=== PATIENT | male | born 1960 | race Caucasian/White ===

== ENCOUNTER 2017-09-16 19:18 | Emergency (ER) | payer OTHER ==
--- OUTSIDE RECORDS SUMMARY | 2017-09-16 19:26 | XMS REPORT ---
:1960 External Reference #:[id number] Author Organization [facility] Address [address] [address] Phone [phone] Care Team Providers Name Role Phone Pelon Willett MD Care Team Information Special Procedure Technologist Unavailable Pelon Willett MD Primary Care Physician Unavailable Payers Type Date Identification Numbers Payment Provider Subscriber Commercial Policy Number: [id number] [employer] Vu Tubbs PayID: [id number] [address] [address] [place] [address] Problems Date Description Provider Status Onset: 09/03/2013 Dyspnea Yaakov Retana M.D. Active Onset: 09/03/2013 Chest pain Yaakov Retana M.D. Active Onset: 09/03/2013 Mixed hyperlipidemia Yaakov Retana M.D. Active Onset: 03/26/2014 Dyspnea on exertion Yaakov Retana M.D. Active Onset: 11/05/2014 Obstructive sleep apnea syndrome Kris Mattson M.D. Active Onset: 09/02/2015 Cough Janna Narvaez MD Active Onset: 09/02/2015 Morbid obesity Janna Narvaez MD Active Onset: 10/06/2015 Gastroesophageal reflux disease Janna Narvaez MD Active Onset: 03/08/2016 Hypersomnia Clair Hamm DNP, RN, Active CLIENT REPRESENTATIVE-BC Onset: 03/08/2016 Insomnia Clair Hamm DNP, RN, Active CLIENT REPRESENTATIVE-BC Family History Date Family Member(s) Problem(s) Comments General Congestive Heart Failure (CHF) mother General Bone Cancer 2 bothers General Breast Cancer sister General Lung Cancer father General Hypertension mother General Diabetes, Non Insulin Dependent sister General [place] sister Father Lung Cancer Father due to Cancer () - Blood Father Smoker Siblings 1 Social History Type Date Description Comments Marital Status Significant Other Lives With Male Partner Occupation Disabled Work Status 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) Cigarette Use Former Cigarette Smoker Smoke 2-3 ppd for 20 years ETOH Use Denies alcohol use Smoking Patient is a former smoker quit smoking in 1993 Recreational Drug Use Denies Drug Use Daily Caffeine Consumes on average 3 cups of regular coffee per day Exercise Type/Frequency Walks 3 times a week Allergies, Adverse Reactions, Alerts Date Description Reaction Status Severity Comments 09/01/2013 Codeine Rash active and hallucinations 09/03/2013 Morphine active bothers stomach Medications Medication Date Status Form Strength Qnty SIG Indications Ordering Provider Prednisone 09/03/ Active Tablets 5mg 90tabs 3 tabs J20.9 Janna 2018 by mouth Brice, for 1 MD week, 2 tabs for 3 weeks, 1 tab for 2 weeks Wrist Splint 05/25/ Active Misc 1units wear at [facility]. 2017 night Edwards, for 1 M.D. month Bupropion HCL 08/31/ Active Tablets 100mg 1 by Unknown 2016 mouth bid Pantoprazole / Active Tablets DR 40mg 90tabs 1 by Unknown Sodium 0000 mouth every day Aspirin / Active Tablets 81mg 1 by Unknown 0000 mouth every day Clopidogrel / Active Tablets 75mg 90tabs 1 by Yaakov Bisulfate 0000 mouth DChitra Retana, every M.D. day Vascepa / Active Capsules 1gm 2 by Unknown 0000 mouth twice a day Fenofibrate / Active Tablets 160mg 1 by Unknown 0000 mouth every day Flovent HFA / Active Aerosol 220mcg/Act 2 puffs Unknown 0000 as needed. Amoxicillin / Active Tablets 875mg take one Unknown 0000 tablet by mouth twice a day Zolpidem Tartrate 10/26/ Hx Tablets ER 6.25mg 15tabs Take One G47.33 Janna ER 2015 - Tablet Brice, 10/12/ By Mouth 2016 Every Day as Needed For Sleep Maximum Daily Dose=1 Tablet Symbicort 09/01/ Hx Aerosol 80-4.5mcg/ 20.7gm 1 puff R06.02 Janna 2015 - Act twice a Brice, 08/16/ day as 2018 needed Lunesta 09/01/ Hx Tablets 2mg 30tabs 1 tablet G47.33 Janna 2016 - by mouth Brice, 10/12/ for 2016 sleep as needed Atorvastatin 08/31/ Hx Tablets 40mg 1 by Unknown Calcium 2015 - mouth 10/12/ every 2016 day Gabapentin 08/31/ Hx Capsules 300mg 2 tabs Unknown 2016 - daily 2016 Valsartan 08/31/ Hx 160mg one tab Unknown 2015 - PO daily 2016 Tamiflu 09/24/ Hx Capsules 75mg 1 tablet Niziol, 2013 - po bid Pelon 10/14/ x5 days 2013 Lipitor / Hx Tablets 40mg 90tabs one tab Unknown 0000 - by mouth 12/29/ 2014 night at bedtime Tricor / Hx Tablets 145mg 30tabs 1 by Unknown 0000 - mouth 03/24/ 2013 day Meloxicam / Hx Tablets 15mg 30tabs 1 by Unknown 0000 - mouth 08/16/ 2017 day Tramadol HCL / Hx Tablets 50mg 50tabs four Unknown 0000 - times a day as 2015 needed Fish Oil / Hx Capsules 1000mg 2 by Unknown 0000 - mouth bid 2013 Iron Supplement / Hx Tablets 325(65Fe) 90tabs by mouth Unknown 0000 - mg every 2013 Hydrocodone-Aceta / Hx Tablets 5-325mg 40tabs 1 by Unknown minophen 0000 - mouth 2013 4-6 hours prn. Famciclovir / Hx Tablets 500mg 1 tab po Niziol, 0000 - tid x 7 Pelon, 03/24/ days 2013 Trazodone HCL 00/ Hx Tablets 50mg 30tabs 1 tablet Unknown 0000 - at 12/29/ bedtime 2014 as needed Phendimetrazine / Hx Tablets 35mg 240tab 2 by Unknown Tartrate 0000 - s mouth 01/28/ before 2015 meals Androgel /00/ Hx qd Unknown 0000 - 2016 Cyclobenzaprine / Hx Tablets 10mg one by Unknown HCL 0000 - mouth three 2016 times a day as needed spasm Oxycodone HCL 00/ Hx prn Unknown 0000 - 2015 Trilipix 00/ Hx Capsules 135mg take one Unknown 0000 - DR capsule 12/06/ qd 2016 Testosterone / Hx Gel 50mg/5GM 2 packet Unknown 0000 - (1%) daily 2017 Axiron / Hx Solution 30mg/Act 2 pumps Unknown 0000 - under 05/03/ each arm 2016 daily Oxycodone-Acetami / Hx Tablets 10-325mg take 1 Unknown nophen 0000 - tablet 08/16/ by mouth 2018 every 6 hours as needed for pain Selenium / Hx 125 mg Unknown 0000 - daily 2017 Medications Administered in Office Medication Date Status Form Strength Qnty SIG Indications Ordering Provider Inj, 02/18/ Administered Injection Yaakov D. Regadenoson, 0.1 2014 Brand, MG M.D. Aminophylline 02/18/ Administered Injection Yaakov D. 2015 Brand, M.D. Technetium TC 02/18/ Administered Injection Yaakov D. 99M Tetrofosmin, 2014 Brand, Per Unit Dose Up M.D. To 40 Millicuries Inj, 08/05/ Administered Injection Yaakov D. Regadenoson, 0.1 2014 Brand, MG M.D. Technetium TC 08/05/ Administered Injection Yaakov D. 99M Tetrofosmin, 2014 Brand, Per Unit Dose Up M.D. To 40 Millicuries Inj, 09/18/ Administered Injection Yaakov D. Regadenoson, 0.1 2013 Brand, MG M.D. Technetium TC 09/18/ Administered Injection Yaakov D. 99M Tetrofosmin, 2013 Brand, Per Unit Dose Up M.D. To 40 Millicuries Vital Signs Date Vital Result Comment 09/03/2017 Height 69 inches 5'9" Weight 266.00 lb Heart Rate 92 /min BP Systolic Sitting 124 mmHg BP Diastolic Sitting 80 mmHg Respiratory Rate 14 /min O2 % BldC Oximetry 99 % BMI (Body Mass Index) 39.3 kg/m2 Neck Circumference in inches 19 08/17/2017 Height 69 inches 5'9" Weight 260.00 lb No shoes Heart Rate 84 /min BP Systolic Sitting 142 mmHg Rue lrg cuff BP Diastolic Sitting 92 mmHg Rue lrg cuff BP Systolic Standing 136 mmHg Rue lrg cuff BP Diastolic Standing 88 mmHg Rue lrg cuff Respiratory Rate 17 /min BMI (Body Mass Index) 38.4 kg/m2 Ejection Fraction 60-65% 01/07/2016-echo 05/04/2017 Height 69 inches 5'9" Weight 245.00 lb Heart Rate 85 /min BP Systolic Sitting 132 mmHg BP Diastolic Sitting 88 mmHg Respiratory Rate 17 /min BMI (Body Mass Index) 36.2 kg/m2 11/03/2016 Height 69 inches 5'9" Weight 248.00 lb Heart Rate 84 /min BP Systolic Sitting 132 mmHg BP Diastolic Sitting 86 mmHg Respiratory Rate 17 /min BMI (Body Mass Index) 36.6 kg/m2 08/09/2016 Height 69 inches 5'9" Weight 262.50 lb no shoes Heart Rate 86 /min BP Systolic Sitting 136 mmHg Lue lrg cuff BP Diastolic Sitting 88 mmHg Lue lrg cuff BP Systolic Standing 132 mmHg Lue lrg cuff BP Diastolic Standing 84 mmHg Lue lrg cuff Respiratory Rate 18 /min BMI (Body Mass Index) 38.8 kg/m2 Ejection Fraction 60-65% 01/06/2016-echo 03/08/2016 Height 69 inches 5'9" Weight 255.00 lb Heart Rate 90 /min BP Systolic 130 mmHg BP Diastolic 84 mmHg Respiratory Rate 14 /min O2 % BldC Oximetry 98 % BMI (Body Mass Index) 37.7 kg/m2 01/11/2016 Height 69 inches 5'9" Weight 244.00 lb Heart Rate 84 /min BP Systolic Sitting 116 mmHg right arm, large cuff BP Diastolic Sitting 88 mmHg right arm, large cuff BP Systolic Standing 110 mmHg right arm, large cuff BP Diastolic Standing 86 mmHg right arm, large cuff Respiratory Rate 20 /min BMI (Body Mass Index) 36.0 kg/m2 Ejection Fraction 60-65% 01/07/16 01/07/2016 Height 69 inches 5'9" Weight 245.00 lb w/ shoes Heart Rate 82 /min BP Systolic Sitting 124 mmHg Rue, lg cuff BP Diastolic Sitting 86 mmHg Rue, lg cuff BP Systolic Standing 132 mmHg Rue BP Diastolic Standing 90 mmHg Rue Respiratory Rate 16 /min BMI (Body Mass Index) 36.2 kg/m2 Ejection Fraction 50-55% as of 01/29/15 echo 10/27/2015 Height 69 inches 5'9" Weight 258.00 lb Heart Rate 88 /min BP Systolic 124 mmHg BP Diastolic 78 mmHg Respiratory Rate 14 /min O2 % BldC Oximetry 97 % BMI (Body Mass Index) 38.1 kg/m2 10/06/2015 Height 69 inches 5'9" Weight 258.00 lb Heart Rate 96 /min BP Systolic 128 mmHg BP Diastolic 84 mmHg Respiratory Rate 14 /min O2 % BldC Oximetry 96 % BMI (Body Mass Index) 38.1 kg/m2 09/02/2015 Height 69 inches 5'9" Weight 258.00 lb Heart Rate 97 /min BP Systolic Sitting 136 mmHg BP Diastolic Sitting 74 mmHg Respiratory Rate 18 /min O2 % BldC Oximetry 97 % BMI (Body Mass Index) 38.1 kg/m2 02/25/2015 Height 69.5 inches 5'9.50" Weight 253.00 lb Heart Rate 96 /min BP Systolic Sitting 132 mmHg Ra large cuff BP Diastolic Sitting 94 mmHg Ra large cuff BP Systolic Standing 126 mmHg Ra BP Diastolic Standing 90 mmHg Ra Respiratory Rate 16 /min BMI (Body Mass Index) 36.8 kg/m2 Ejection Fraction 50-55% 01/29/15 01/29/2015 Height 69.5 inches 5'9.50" Weight 252.00 lb with shoes Heart Rate 88 /min BP Systolic Sitting 136 mmHg LA, Lg cuff BP Diastolic Sitting 88 mmHg LA, Lg cuff BP Systolic Standing 136 mmHg LA BP Diastolic Standing 92 mmHg LA Respiratory Rate 18 /min BMI (Body Mass Index) 36.7 kg/m2 Ejection Fraction 50-55% 01/29/2015 12/30/2014 Height 69.5 inches 5'9.50" Weight 242.00 lb Heart Rate 88 /min BP Systolic Sitting 118 mmHg BP Diastolic Sitting 82 mmHg Respiratory Rate 14 /min BMI (Body Mass Index) 35.2 kg/m2 12/17/2014 Weight 251.00 lb Heart Rate 91 /min BP Systolic 124 mmHg BP Diastolic 88 mmHg Respiratory Rate 14 /min O2 % BldC Oximetry 98 % Neck Circumference in inches 19 11/05/2014 Height 69 inches 5'9" Weight 240.00 lb Heart Rate 78 /min BP Systolic Sitting 128 mmHg right arm, large cuff BP Diastolic Sitting 92 mmHg right arm, large cuff Respiratory Rate 12 /min O2 % BldC Oximetry 96 % Room air BMI (Body Mass Index) 35.4 kg/m2 09/11/2014 Height 69 inches 5'9" Weight 245.00 lb with shoes Heart Rate 80 /min regular BP Systolic Sitting 112 mmHg left arm reg cuff BP Diastolic Sitting 78 mmHg left arm reg cuff BP Systolic Standing 118 mmHg left arm reg cuff BP Diastolic Standing 76 mmHg left arm reg cuff Respiratory Rate 18 /min BMI (Body Mass Index) 36.2 kg/m2 Ejection Fraction 50-55% 08/10/14 09/03/2014 Height 69 inches 5'9" Weight 245.00 lb Heart Rate 83 /min BP Systolic Sitting 124 mmHg BP Diastolic Sitting 80 mmHg O2 % BldC Oximetry 97 % BMI (Body Mass Index) 36.2 kg/m2 Neck Circumference in inches 18 07/30/2014 Height 69 inches 5'9" Weight 248.00 lb w/ shoes Heart Rate 80 /min reg BP Systolic Sitting 116 mmHg LA, lg cuff BP Diastolic Sitting 76 mmHg LA, lg cuff BP Systolic Standing 118 mmHg LA BP Diastolic Standing 80 mmHg LA Respiratory Rate 16 /min BMI (Body Mass Index) 36.6 kg/m2 07/09/2014 Height 69 inches 5'9" Weight 240.00 lb Heart Rate 95 /min BP Systolic Sitting 131 mmHg BP Diastolic Sitting 76 mmHg Respiratory Rate 20 /min O2 % BldC Oximetry 97 % BMI (Body Mass Index) 35.4 kg/m2 Neck Circumference in inches 18 03/26/2014 Height 69 inches 5'9" Weight 241.00 lb with shoes Heart Rate 88 /min regular BP Systolic 110 mmHg LA large cuff BP Diastolic 80 mmHg LA large cuff BP Systolic Standing 106 mmHg LA large cuff BP Diastolic Standing 80 mmHg LA large cuff Respiratory Rate 18 /min BMI (Body Mass Index) 35.6 kg/m2 10/14/2013 Height 69 inches 5'9" Weight 230.00 lb Heart Rate 80 /min BP Systolic Sitting 126 mmHg BP Diastolic Sitting 88 mmHg Respiratory Rate 12 /min BMI (Body Mass Index) 34.0 kg/m2 09/26/2013 Height 61.50 inches 5'1.50" Weight 230.00 lb without shoes Heart Rate 66 /min BP Systolic Sitting 124 mmHg Ra lg cuff BP Diastolic Sitting 80 mmHg Ra lg cuff BP Systolic Standing 114 mmHg Ra lg cuff BP Diastolic Standing 70 mmHg Ra lg cuff Respiratory Rate 16 /min BMI (Body Mass Index) 42.7 kg/m2 09/03/2013 Height 69 inches 5'9" Weight 232.00 lb Heart Rate 64 /min BP Systolic 116 mmHg Ra large cuff BP Diastolic 90 mmHg Ra large cuff BP Systolic Sitting 120 mmHg LA large cuff BP Diastolic Sitting 82 mmHg LA large cuff BP Systolic Standing 108 mmHg LA BP Diastolic Standing 88 mmHg LA Respiratory Rate 18 /min BMI (Body Mass Index) 34.3 kg/m2 Results Test Date Test Result H/L Range Note CBC Auto Diff 01/29/2015 White Blood Count 7.2 10^3/uL 4.8-10.8 Red Blood Count 4.65 10^6/uL 4.0-5.4 Hemoglobin 14.4 g/dL 14.0-18.0 Hematocrit 42 % 42-52 Mean Corpuscular Volume 91 fL 80-94 Mean Corpuscular Hemoglobin 31 pg 27-31 Mean Corpuscular HGB Conc 34 g/dL 31-36 Red Cell Distribution Width 14 % 10.5-15 Platelet Count 158 10^3/uL 150-450 Mean Platelet Volume 8 um3 7.4-10.4 Abs Neutrophils 4.0 10^3/uL 1.5-7.7 Abs Lymphocytes 2.0 10^3/uL 1.0-4.8 Abs Monocytes 0.7 10^3/uL 0-0.8 Abs Eosinophils 0.3 10^3/uL 0-0.6 Abs Basophils 0.1 10^3/uL 0-0.2 Abs Nucleated RBC 0.01 10^3/uL Granulocyte % 55.7 % 38-83 Lymphocyte % 28.4 % 25-47 Monocyte % 10.1 % High 1-9 Eosinophil % 4.6 % 0-6 Basophil % 1.2 % 0-2 Nucleated Red Blood Cells % 0.1 Procedures Date CPT Code Description Status 08/27/2017 93704 ECHO Transthoracic, Real-Time 2D With Doppler And Color Completed Flow 08/27/2017 39116 ECHO Transthoracic, Real-Time 2D With Doppler And Color Completed Flow 08/17/2017 92654 EKG Tracing & Interpretation Completed 05/25/2017 18083 Nerve Conduction 07-08 Studies Completed 08/09/2016 61135 EKG Tracing & Interpretation Completed 01/10/2016 93886 Treadmill Interp/Report Only Completed 01/10/2016 76356 Stress Test Supervsn W/Out I/R Completed 01/07/2016 46377 ECHO Transthoracic, Real-Time 2D With Doppler And Color Completed Flow 01/07/2016 64036 EKG Tracing & Interpretation Completed 02/18/2015 18786 Stress Test Completed 02/18/2015 48831 Myocardial Perfusion Imaging Tomographic (Spect) Completed Multiple Studies 02/08/2015 Colonoscopy Completed 01/29/2015 97313 ECHO Transthoracic, Real-Time 2D With Doppler And Color Completed Flow 01/29/2015 11123 EKG Tracing & Interpretation Completed 08/10/2014 44985 ECHO Transthoracic, Real-Time 2D With Doppler And Color Completed Flow 08/05/2014 95187 Stress Test Completed 08/05/2014 43518 Myocardial Perfusion Imaging Tomographic (Spect) Completed Multiple Studies 07/30/2014 24344 EKG Tracing & Interpretation Completed 07/25/2014 35786 Polysomnography Sleep Staging 4+ Parameters W/Cpap Completed 06/16/2014 42687 Polysomnography Sleep Staging 4+ Parameters W/Cpap Completed 05/19/2014 55001 EEG Recording Awake & Drowsy Completed 03/26/2014 76869 EKG Tracing & Interpretation Completed 12/02/2013 86805 Polysomnography Sleep Staging 4+ Parameters Completed 09/18/2013 69812 Stress Test Completed 09/18/2013 77825 Myocardial Perfusion Imaging Tomographic (Spect) Completed Multiple Studies 09/10/2013 21961 EKG, Interpretation Only Completed 09/03/2013 85964 EKG Tracing & Interpretation Completed 08/28/2013 65837 ECHO Transthorasic Realtime 2D W Doppler & Color Completed Flow [facility] 08/26/2013 38279 EEG Recording Awake & Asleep Completed Encounters Type Date Location Provider CPT E/M Dx Office Visit 08/17/2017 [facility] Yaakov Retana, 49756 I71.2 8:30a Yassine Mac I35.0 R07.9 Office Visit 05/04/2017 3:15p [facility] Vamshi Cox, 57313 R20.0 Estefania I69.398 Office Visit 11/03/2016 3:45p [facility] Vamshi GardinerChitra Edwards, 52688 G47.33 M.D. I63.8 R41.840 Office Visit 08/09/2016 8:30a [facility] Rianna Retana, 03051 R07.9 [facility] M.D. I35.0 I71.2 Office Visit 03/08/2016 1:15p [facility] Clair Hamm, 00085 G47.33 [facility] MAYNOR, RN, CLIENT REPRESENTATIVE- G47.00 Office Visit 01/11/2016 1:00p [facility] Rianna Retana, 94313 R07.9 Wire T[facility] At [facility] M.D. I35.0 R06.02 Z01.810 Office Visit 01/07/2016 9:00a [facility] Rianna Retana, 56658 I35.0 [facility] M.D. R07.9 I71.2 Office Visit 10/27/2015 8:15a [facility] [place] [address] R05 [facility] G47.33 K21.9 E66.01 Office Visit 10/06/2015 11:30a [facility] [place] [address] R05 [facility] G47.33 K21.9 E66.01 Office Visit 09/02/2015 2:45p [facility] [place] [address] R06.02 [facility] R05 G47.33 E66.01 Office Visit 02/25/2015 12:00p [facility] Rianna Retana, 49984 I35.0 [facility] M.D. I71.2 Office Visit 01/29/2015 11:30[facility] [place] [address] 786.50 [facility] M.D. 786.05 441.2 Office Visit 12/30/2014 10:30[place] [address] 780.02 [facility] Office Visit 12/17/2014 9:30a [facility] Kris Mattson, 93061 327.23 [facility] M.D. Office Visit 11/05/2014 10:30a [facility] Kris Mattson, 78459 327.23 [facility] [employer] M.D. Office Visit 09/11/2014 11:30a [facility] Of Yaakov Retana, 73840 786.50 Wire Taper M.D. 786.05 441.2 Office Visit 09/03/2014 10:30a [facility] Kris Mattson, 98786 327.23 [facility] [employer] M.D. Office Visit 07/30/2014 9:00a [facility] Yaakov Retana, 05896 786.50 [employer] M.D. 786.05 441.2 Office Visit 07/09/2014 10:15a [facility] Kris Mattson, 65142 327.23 [facility] [employer] M.D. Office Visit 03/26/2014 9:15a [facility] Of Yaakov Retana, 55991 786.50 [employer] M.D. 327.23 786.05 Office Visit 10/14/2013 11:15a [facility] Vamshi Cox, 42247 434.91 Services [facility] [employer] M.D. 780.79 Office Visit 09/26/2013 3:30p [facility] Vivian Retana, 42695 786.50 Wire Taper M.D. Office Visit 09/10/2013 7:34a [facility], Russ Madrigal 35561 435.9 Hospitalists Estefania 530.81 272.2 338.29 Office Visit 09/09/2013 1:48p [facility] Vamshi Cox, 06004 434.91 Services Of [employer] M.D. Office Visit 09/09/2013 7:32a [facility],rubia Kaye M.D. 15012 435.9 Hospitalists 530.81 272.2 338.29 Office Visit 09/03/2013 11:45a [facility] Yaakov Retana, 80565 786.05 Wire Taper M.D. 786.50 272.2 Plan of Care Future Appointment(s):10/13/2017 9:15 am - Janna Narvaez MD at [facility]09/21/2017 8:00 am - Yaakov Retana M.D. at [facility]09/07/2017 10:15 am - Yaakov Retana M.D. at [facility]09/03/2017 - Janna Narvaez MDJ20.9 Acute bronchitis, unspecifiedNew Medication:Prednisone 5 mgFollow up:6 tufpqP93.33 Obstructive sleep apnea (adult) (pediatric)E66.9 Obesity, unspecified
[2017-09-16] MEDS ORDERED: Ketorolac INJ* 30 MG/ML 1 ML VIAL IM ONE (20:05)
[2017-09-16] MEDS ORDERED: Ondansetron ODT TAB* 4 MG PO ONE (20:05)
[2017-09-16 20:42] VITALS: BP 0/0
--- NOTE | 2017-09-16 20:53 | UC ---
Eva Pascual Gabriel, scribed for Joaquina Wilson MD on 09/16/17 at 1959 . FLU HPI - HPI Summary HPI Summary: This patient is a 56 year old M presenting [place] [facility] with a chief complaint of a v/d that began this morning after he ate at [employer] the night before. The last episode was this morning and he has had multiple episodes, he states he has had diarrhea about once every 20 minutes. The patient rates the pain 7/10 in severity. Patient reports myalgia, light headedness, PETTY, ABD pain, decreased liquid intake, and nausea. Patient denies blood in the stool and hematemesis. Pt states he has chronic cough and chest congestion; he has been taking antibiotics and steroids for this with no relief. Pt states he has mini seizures , describes brief absence type seizures They increase when he feels ill and he had one this morning. Mild dizziness, no chest pain. Has hx of elevated heart rate, pulse today is 126, and he is not certain of what his base rate is. - History of Current Complaint Chief Complaint: UCGI Stated Complaint: VOMITTING Time Seen by Provider: 09/16/17 19:47 Hx Obtained From: Patient Onset/Duration: Lasting Hours, Still Present Severity Currently: Moderate Severity Initially: Moderate Pain Intensity: 7 Pain Scale Used: 0-10 Numeric Associated Signs & Symptoms: Positive: Myalgia, Headache, Vomiting, Diarrhea - Allergy/Home Medications Allergies/Adverse Reactions: Allergies Allergy/AdvReac Type Severity Reaction Status Date / Time codeine Allergy Mild Rash Verified 09/16/17 19:29 morphine Allergy Mild Nausea Verified 09/16/17 19:29 Home Medications: Home Medications Fenofibrate Nanocrystallized [Triglide] 160 mg PO 09/16/17 [History] Losartan Potassium [Cozaar] 50 mg PO 09/16/17 [History] predniSONE TAB* [Deltasone TAB*] 09/16/17 [History] PMH/Surg Hx/FS Hx/Imm Hx Previously Healthy: No Endocrine History: Other - obesity Other Endocrine History: obesity Cardiovascular History: Hypertension, Other Other Cardiovascular History: ascending aortic aneurysm Respiratory History: Other Other Respiratory History: sleep apnea GI/ History: Gastroesophageal Reflux Neurological History: Seizures - Surgical History Surgical History: Yes Surgery Procedure, Year, and Place: appy age 11,NEURO STIMULATOR - Family History Family History: Non contributory - Social History Occupation: Employed Full-time Alcohol Use: None Substance Use Type: None Smoking Status (MU): Former Smoker Type: Cigarettes Have You Smoked in the Last Year: No - Immunization History Most Recent Influenza Vaccination: never Most Recent Tetanus Shot: unknown Most Recent Pneumonia Vaccination: never Review of Systems Constitutional: Fatigue - unable to rest; chronically poor sleep, but today aching has prevented him from resting., Other - decreased liquid intake Gastrointestinal: Abdominal Pain, Vomiting, Diarrhea, Nausea Musculoskeletal: Myalgia Neurological: Headache, Other - light headedness All Other Systems Reviewed And Are Negative: Yes Physical Exam Triage Information Reviewed: Yes Appearance: Ill-Appearing - looks fatigued, but alert, speaks easily, Obese Vital Signs: Initial Vital Signs Temp 99.2 F 09/16/17 19:20 Pulse 126 09/16/17 19:20 Resp 18 09/16/17 19:20 BP 130/94 09/16/17 19:20 Pulse Ox 99 09/16/17 19:20 Vital Signs Reviewed: Yes Eyes: Positive: Conjunctiva Clear ENT Exam: Other - moist mucous membranes. ENT: Positive: Pharynx normal Dental Exam: Normal Neck: Positive: Supple, Nontender, No Lymphadenopathy Respiratory: Positive: Lungs clear, Normal breath sounds Cardiovascular: Positive: RRR, Tachycardia, Murmur:Sys:Grade _?_/ - 2 Abdomen Description: Positive: Nontender, No Organomegaly, Soft, Hernia @ - umbilicus, approx 4 cm Bowel Sounds: Positive: Present Musculoskeletal Exam: Normal Neurological: Positive: Alert, Muscle Tone Normal Psychological Exam: Normal Skin Exam: Normal Re-Evaluation - Re-Evaluation First Eval Re-Evaluation Time: 20:50 - remains tachycardic Change: Unchanged Flu Course/Dx - Course Course Of Treatment: no repsonse to zofran and injection of ketorolac. Advised ER evaluation given complex history of chronic cough, persistent steroid use, tachycardia, and presence of aneurysm, hx of seizures. - Differential Dx/Diagnosis Differential Diagnosis/HQI/PQRI: Other - food borne illness, dehydration, electrolyte imbalance, tachycardia. Provider Diagnoses: gastroenteritis, tachycardia with history of aneurysm and steroid use; further work up in the ED advised. Discharge - Sign-Out/Discharge Documenting (check all that apply): Discharge/Admit/Transfer - Discharge Plan Condition: Stable Disposition: TRANS HIGHER LVL OF CARE FAC Patient Education Materials: Dehydration (ED) Referrals: Pelon Willett MD [Primary Care Provider] - Additional Instructions: Because of your persistent high heart rate and medical history, I am advising further work up in the emergeny room at [facility]. You will be going by private car, and should check in on arrival with the staff. - Billing Disposition and Condition Condition: STABLE Disposition: EMTALA The documentation as recorded by the Eva mcintyre Gabriel accurately reflects the service I personally performed and the decisions made by me, Joaquina Wilson MD.
== END 2017-09-16 21:02 | disposition short-term general hospital (02) ==
LOC: UCEAST 19:18
DX: K52.9 Noninfective gastroenteritis and colitis, unspecified (principal); R00.0 Tachycardia, unspecified; I71.2 Thoracic aortic aneurysm, without rupture; M79.1 Myalgia; R51 Headache; K21.9 Gastro-esophageal reflux disease without esophagitis; R56.9 Unspecified convulsions; Z88.5 Allergy status to narcotic agent; Z87.891 Personal history of nicotine dependence
CPT/HCPCS: 96372; 99212; A9270-GY; G0463; J1885

== ENCOUNTER → 2019-05-19 08:04 | Day surgery (SDC) | payer MEDICARE, OTHER ==
[~2019-05-19 08:04] MED LIST: Acetaminophen TAB* 325 MG PO PRN; Diazepam TAB(*) 5 MG ONE; Heparin 2 UNITS/ML IVPREMIX* 2,000 ML IV ONE; Heparin(*) 1000 UNIT/ML 10 ML VIAL CATH LAB IV ONE; Iohexol 350 (CONTRAST) 200 ML MDV IV ONE; Lidocaine 1% INJ* 10 MG/ML 30 ML SDV ONE; Midazolam* 1 MG/ML 5 ML VIAL (5 MG) ONE; NS 0.9% 1000 ML** 1,000 ML IV SCH; VERAPAMIL 2.5 MG/ML 2 ML VIAL ** 5 mg/2 ml ONE; diPHENhydraMINE PO* 25 MG ONE; fentaNYL* 50 MCG/ML 2 ML VIAL (100 MCG VIAL) ONE; nitroGLYCERIN DRIP* 25,000 MCG/250 ML BTL ONE
[2019-05-19 12:44] VITALS: BP 125/86
--- NOTE | 2019-05-20 17:11 | CATH ---
"*[facility]* [address] [address] Main: [phone] [email or web address] Cardiac Catheterization Patient: Vu Tubbs : 1960 Study Date: 05/19/2019 Age: 58 Gender: M HR: Height: 69 in /175.3 cm BSA: 2.49 m^2 Weight: 268 lb /121.8 kg BMI: 39.6 kg/m^2 Cash Office Worker: Yaakov Retana MD Ordering Physician: Yaakov Retana MD Referring Physician: Yaakov Retana MD, Mazin White, --- - Right heart catheterization. - Left coronary angiography. - Right coronary angiography. Summary: 1. Aortic valve: There is severe stenosis. 2. Normal Coronary Arteries. 3. No pulmonary HTN. Recommendations: Patient will be evaluated for aortic valve replacement and ascending aorta repair. History: Aortic valve disease. Aortic valve disease. Aortic valve disease. Aortic stenosis. Risk factors: Hypertension. Dyslipidemia. Family history is significant for coronary artery disease. Labs, prior tests, procedures, and surgery: Blood tests: International normalized ratio (INR) of 1.03. Partial thromboplastin time (PTT) of 36.3 sec. Serum potassium (K) of 4.1 mEq/l. Serum sodium (Na) of 135 mEq/l. Serum creatinine (current admission) of 0.81 mg/dl. Blood urea nitrogen of 15 mg/dl. Glucose of 97 mg/dl. Platelet count of 200 th/ul. White blood cell count (WBC) of 0.01 th/ul. Red blood cell count (RBC) of 5160 th/ul. Hematocrit of 45 %. Hemoglobin (pre-procedure) of 15.8 g/dl. Study data: Study status: Cardiac cath: elective. Location: Catheterization laboratory. Consent: The risks, benefits, and alternatives to the procedure were explained to the patient and/or their healthcare hvac sales representative and written informed consent was obtained. All available pre-procedure labs were reviewed. Height: 175.3 cm. 69 in. Weight: 121.8 kg. 268 lb. Body surface area: 2.49 m^2. Body mass index: 39.6 kg/m^2. Procedure: 1. Initial setup. The patient was brought to the laboratory. Surface ECG leads, blood pressure measurements, and pulse oximetric signals were monitored. A baseline seven lead ECG was recorded. A time out was observed per protocol. 2. Skin preparation. The planned puncture sites were prepped and draped in the usual sterile manner. 3. Local anesthesia. 1% lidocaine was administered. 4. Sedation. was administered. 5. Supplemental oxygen. Oxygen, 4 L/min was administered throughout the procedure. 6. Right brachial artery access. A 5F Flores Sheath 11cm sheath was advanced into the vessel. 7. Right heart catheterization was performed. A 5 Fr Thermodilution catheter was successfully advanced to the right ventricle under fluoroscopic guidance. 8. Right radial artery access. A 6F Glidesheath Slender sheath was advanced into the vessel. 9. Selective left coronary angiography. A 6F JL 4 catheter was advanced into the left coronary vessel ostium under fluoroscopic guidance. Contrast was injected. Images were obtained in multiple projections. 10. Supplemental oxygen. Oxygen, 5 L/min was administered throughout the procedure. 11. Selective right coronary angiography. A 6F AR 1 MOD catheter was advanced into the right coronary vessel ostium under fluoroscopic guidance. Contrast was injected. Images were obtained in multiple projections. Study completion: Minimal estimated blood loss. All catheters inserted during the procedure were removed. There were no apparent complications. Administered medications: (Radial) Nitroglycerin, 300mcg, intra-arterially. (Radial) Verapamil, 3mg, intra-arterially. (Radial) Heparin, 3,000units, intra-arterially. VERSED (Midazolam), for a total dose of 5mg, IV. Fentanyl, for a total dose of 75mcg, IV. Contrast: Omnipaque 350 70 ml (total dose). Omnipaque 350 130 ml (wasted). Radiation: Fluoroscopy dose: 173.9 cGy. Discharge: The patient tolerated the procedure well and was discharged from the lab in stable condition. Findings Coronary arteries: The coronary circulation is right dominant. The left main trifurcates into the LAD, a ramus intermedius, and the left circumflex. The left anterior descending gives rise to 1 diagonal. The left circumflex gives rise to 1 obtuse marginal. The right coronary gives rise to 1 RV marginal and 1 posterolateral. Left main: Normal, 0% stenosis. LAD: Normal, 0% stenosis. Left circumflex: Normal, 0% stenosis. Right coronary: Normal, 0% stenosis. Aortic valve: There is severe stenosis. Hemodynamics: + + + |Stage description |Condition 1 - Thermo | + + + |Systemic cardiac output (Qs)|6.4 L/min, 2.71 L/(min-m^2) | + + + |HR, R-R, stroke volume |88 bpm, 72 ml | + + + |RA pressure a/v (m) |13/12 (10) | + + + |RV pressure s/d, ed |25/14, 15 | + + + |PA pressure s/d (m) |28/23 (26) | + + + |PA wedge a/v (m) |26/26 (24) | + + + |LV pressure s/d, ed |182/-17, 24, dP/ln=7169 mm Hg/s| + + + |Arterial pressure s/d (m) |128/81 (100) | + + + |Total systemic resistance |1209 dyn-sec/cm5 | + + + Aortic valve: + + + |Stage description |Condition 1 Thermo| + + + |Mean gradient |41.9 mm Hg | + + + |Peak-peak gradient |66 mm Hg | + + + |Cardiac output |6.4 L/min | + + + |R-R interval |682 ms | + + + |Systolic ejection time|240 ms | + + + |Valve area |0.98 cm^2 | + + + |Valve area index |0.42 cm^2/m^2 | + + + Prepared and electronically signed by Yaakov Retana MD 05/20/2019 17:11"
== END | disposition home or self-care (01) ==
LOC: CHICATH 08:04
PROVIDERS: ATTEND Specialist
DX: I35.0 Nonrheumatic aortic (valve) stenosis (principal); R06.02 Shortness of breath; R07.9 Chest pain, unspecified; I10 Essential (primary) hypertension; I71.2 Thoracic aortic aneurysm, without rupture; G47.33 Obstructive sleep apnea (adult) (pediatric); E78.2 Mixed hyperlipidemia; E66.01 Morbid (severe) obesity due to excess calories; K21.9 Gastro-esophageal reflux disease without esophagitis; G47.00 Insomnia, unspecified; Z87.891 Personal history of nicotine dependence
CPT/HCPCS: 93460; 99156; 99157; A9270-GY; C1769; C1887; J1644; J2250; J3010